=== PATIENT | female | born 1980 ===

== ENCOUNTER 2017-08-26 02:53 | Inpatient (IN) | payer OTHER ==
[2017-08-26] MEDS ORDERED: Lactated Ringer's 1,000 ML in Lactated Ringer's 1,000 ML IV STA (03:26)
--- NOTE | 2017-08-26 03:32 | ED PDOC ---
Arrival/HPI - General Chief Complaint: Abdominal Pain Time Seen by Provider: 08/26/17 03:25 Historian: Patient, Spouse - History of Present Illness Narrative History of Present Illness (Text): you were treated in the ED today for having epigastric discomfort going to the back with nausea/vomiting without bile/blood after a heavy meal per you and your which has been recurrent the past few months otherwise without any headache/dizziness/difficulty breathing/chest pain/numbness/tingling/loss of limb function/pain with urination. 08/26/17 03:30 Time/Duration: 1-3 hours Symptom Onset: Gradual Symptom Course: Unchanged Severity Level: 4 Past Medical History - Provider Review Nursing Documentation Reviewed: Yes - Travel History Have you recently traveled outside [place] w/in the past 3 mons?: No - Psychiatric Hx Substance Use: No Family/Social History - Physician Review Nursing Documentation Reviewed: Yes Family/Social History: No Known Family HX Smoking Status: n Hx Alcohol Use: No Hx Substance Use: No Allergies/Home Meds Allergies/Adverse Reactions: Allergies No Known Allergies Allergy (Verified 08/26/17 03:07) Home Medications: Home Meds Medication Instructions Recorded Confirmed No Known Home Med 08/26/17 08/26/17 Review of Systems - Review of Systems Constitutional: Normal Eyes: Normal ENT: Normal Respiratory: Normal Cardiovascular: Normal Gastrointestinal: Abdominal Pain, Nausea, Vomiting Genitourinary Female: Normal Musculoskeletal: Normal Skin: Normal Neurological: Normal Endocrine: Normal Hemo/Lymphatic: Normal Psychiatric: Normal Physical Exam Vital Signs Reviewed: Yes Vital Signs Temp Pulse Resp BP Pulse Ox 08/26/17 05:58 69 20 123/71 97 08/26/17 04:50 71 20 142/81 100 08/26/17 03:04 98.4 F 85 18 135/84 99 Temperature: Afebrile Blood Pressure: Hypertensive Pulse: Regular Respiratory Rate: Normal Appearance: Positive for: Well-Appearing, Non-Toxic, Uncomfortable Mental Status: Positive for: Alert and Oriented X 3 - Systems Exam Head: Present: Atraumatic, Normocephalic Pupils: Present: PERRL Extroacular Muscles: Present: EOMI Conjunctiva: Present: Normal Ears: Present: Normal Mouth: Present: Moist Mucous Membranes Pharnyx: Present: Normal Nose (Internal): Present: Normal Inspection Neck: Present: Normal Range of Motion Respiratory/Chest: Present: Clear to Auscultation, Good Air Exchange Cardiovascular: Present: Regular Rate and Rhythm Abdomen: Present: Tenderness, Other (epigastric) Back: Present: Normal Inspection Upper Extremity: Present: Normal Inspection Lower Extremity: Present: Normal Inspection Neurological: Present: GCS=15, CN II-XII Intact, Speech Normal, Motor Func Grossly Intact Skin: Present: Warm, Normal Color Psychiatric: Present: Alert, Oriented x 3, Normal Insight, Normal Concentration Medical Decision Making ED Course and Treatment: 08/26/17 03:32 you were treated in the ED today for having epigastric discomfort going to the back with nausea/vomiting without bile/blood after a heavy meal per you and your which has been recurrent the past few months otherwise without any headache/dizziness/difficulty breathing/chest pain/numbness/tingling/loss of limb function/pain with urination. You were otherwise breathing easily, good strength/sensation, walking easily, clear lungs, mild epigastric abdomen tenderness, no fever temp 98.4, stable heart rate 85, stable breathing rate 18, excellent oxygen level 99% room air, elevated blood pressure 135/84 which we recommend repeat in 2-3 days primary care office to determine further treatment , you have blood tests no infection count 10.2, low blood mildly level hemoglobin 11.1/platelets 372, stable chemistry sodium 140, potassium 3.6, bicarbonate 27, chloride 103, bun 18, creatinine 0.9, glucose 112, mildly elevated liver AST/ALT 49/74, Liver Alkaline Phosphatase 70, Liver bilirubin 0.4 , heart blood test 0.21, urine test negative, urine test negative, ECG NSR, intravenous fluids/zofran/protonix done in the ED without improvement , counselled to eat low fat diet. 08/26/17 04:40 trop 0.206 with ECG NSR wo román elevation. pt had been given toradol earlier but will give asprin additionally 324mg w morphine. 08/26/17 04:52 EC: no change from prior. 08/26/17 06:35 repeat trop pending. 08/26/17 07:01 CTA CAP. No PE, dissection, aneurysm, stenosis. No ptx or consolidation, or effusion. multiple gallbladder stones with wall thickening. appendix is top normal thickness. b/l hilar LNs 08/26/17 07:44 repeat trop 0.01. no ECG signs of ischemia. d/w Dr. Adair and possible lab discrepency and will admit to tele for repeat trop/ecg to make final determination of trop status. npo, pending ultrasound gallbladder, consult surgery, and consult cardiology dr. weller. - Lab Interpretations Lab Results: 08/26/17 03:20 08/26/17 03:20 Lab Results 08/26/17 06:40: Troponin I < 0.01 D 08/26/17 03:53: Urine Color Yellow, Urine Appearance Clear, Urine pH 6.5, Ur Specific [place] 1.020, Urine Protein Negative, Urine Glucose (UA) Negative, Urine Ketones Negative, Urine Blood Negative, Urine Nitrate Negative, Urine Bilirubin Negative, Urine Urobilinogen 0.2, Ur Leukocyte Esterase Negative 08/26/17 03:20: Sodium 140, Potassium 3.6, Chloride 103, Carbon Dioxide 27, Anion Gap 14, BUN 18, Creatinine 0.9, Est GFR ( Amer) > 60, Est GFR (Non- Af Amer) > 60, Random Glucose 112 H, Calcium 8.7, Total Bilirubin 0.4, AST 49 H , ALT 74 H, Alkaline Phosphatase 70, Troponin I 0.21 H*, Total Protein 7.3, Albumin 3.9, Globulin 3.4, Albumin/Globulin Ratio 1.1, Lipase 132 08/26/17 03:20: PT 12.0, INR 1.10 H, APTT 30.3 08/26/17 03:20: WBC 10.2, RBC 3.67, Hgb 11.1 L, Hct 33.0 L, MCV 89.9, MCH 30.2, MCHC 33.6, RDW 12.8, Plt Count 372, MPV 9.9, Gran % 59.1, Lymph % (Auto) 29.6, [place] % (Auto) 8.2 H, Eos % (Auto) 2.5, Baso % (Auto) 0.6, Gran # 6.04, Lymph # 3.0, [place] # 0.8 H, Eos # 0.3, Baso # 0.06 I have reviewed the lab results: Yes - RAD Interpretation Radiology Orders: 08/26/17 04:50 ANGIOGRAPHY DISECTION PROTOCOL [CT] Stat 08/26/17 06:56 GALL BLADDER [US] Stat - EKG Interpretation Interpreted by ED Physician: Yes (NSR, flipped t waves, avr v1, flattened v2) Type: 12 lead EKG - Medication Orders Current Medication Orders: Discontinued Medications Aspirin (Aspirin Chewable) 324 mg PO STAT STA Stop: 08/26/17 04:42 Last Admin: 08/26/17 04:47 Dose: 324 mg Lactated Ringer's 1,000 ml/ (Lactated Ringer's) 2,000 mls @ 1,000 mls/hr IV BOLUS STA Stop: 08/26/17 04:55 Last Admin: 08/26/17 04:09 Dose: 1,000 mls/hr eMAR Start Stop Document 08/26/17 04:09 JOL (Rec: 08/26/17 04:09 JOL [id number]) Intravenous Solution Start Date 08/26/17 Start Time 03:30 End Date 08/26/17 End time 05:30 Total Infusion Time 120 Ketorolac Tromethamine (Toradol) 30 mg IVP STAT STA Stop: 08/26/17 04:23 Last Admin: 08/26/17 04:25 Dose: 30 mg MAR Pain Assessment Document 08/26/17 04:25 JOL (Rec: 08/26/17 04:47 JOL [id number]) Pain Reassessment Is this a pain reassessment? No Sleep Is patient sleeping during reassessment? No Presence of Pain Presence of Pain Yes Pain Scale Used Pain Scale Used Numeric Location Pain Location Body Site Abdomen IVP Administration Document 08/26/17 04:25 JOL (Rec: 08/26/17 04:47 JOL [id number]) Charges for Administration # of IVP Administrations 1 Morphine Sulfate (Morphine) 2 mg IVP STAT STA Stop: 08/26/17 04:42 Last Admin: 08/26/17 04:48 Dose: 2 mg MAR Pain Assessment Document 08/26/17 04:48 JOL (Rec: 08/26/17 04:48 JOL [id number]) Pain Reassessment Is this a pain reassessment? No Sleep Is patient sleeping during reassessment? No Presence of Pain Presence of Pain Yes Pain Scale Used Pain Scale Used Numeric Location Pain Location Body Site Chest Abdomen Description Intensity of Pain at present 7 IVP Administration Document 08/26/17 04:48 JOL (Rec: 08/26/17 04:48 JOL [id number]) Charges for Administration # of IVP Administrations 1 Ondansetron HCl (Zofran Inj) 4 mg IVP STAT STA Stop: 08/26/17 03:27 Last Admin: 08/26/17 04:09 Dose: 4 mg IVP Administration Document 08/26/17 04:09 JOL (Rec: 08/26/17 04:09 JOL [id number]) Charges for Administration # of IVP Administrations 1 Pantoprazole Sodium (Protonix Inj) 40 mg IVP STAT STA Stop: 08/26/17 03:27 Last Admin: 08/26/17 04:09 Dose: 40 mg IVP Administration Document 08/26/17 04:09 JOL (Rec: 08/26/17 04:09 JOL [id number]) Charges for Administration # of IVP Administrations 1 Disposition/Present on Arrival - Present on Arrival Any Indicators Present on Arrival: No History of DVT/PE: No History of Uncontrolled Diabetes: No Urinary Catheter: No History of Decub. Ulcer: No History Surgical Site Infection Following: None - Disposition Have Diagnosis and Disposition been Completed?: Yes Diagnosis: Epigastric abdominal pain Disposition: HOSPITALIZED Disposition Time: 07:47 Patient Plan: Admission, Telemetry Patient Problems: Current Active Problems Problem Status Onset Epigastric abdominal pain Acute Condition: STABLE Forms: [employer] (Citizen Of [place])
[2017-08-26 03:52] LABS: BASO # 0.06 K/mm3 (0.0-2.0); BASO % 0.6 % (0.0-3.0); EOS # 0.3 (0.0-0.7); EOS % 2.5 % (1.5-5.0); GRAN # 6.04 (1.4-6.5); GRAN % 59.1 % (50.0-68.0); LYMPH % 29.6 % (22.0-35.0); MEAN CELL VOLUME 89.9 fl (80.0-105.0); MEAN CORPUSCULAR HEMOGLOBIN 30.2 pg (25.0-35.0); MEAN CORPUSCULAR HGB CONC 33.6 g/dl (31.0-37.0); MEAN PLATELET VOLUME 9.9 fl (7.0-11.0); MONO # 0.8 (0.1-0.6); MONO % 8.2 % (1.0-6.0); RED CELL DISTRIBUTION WIDTH 12.8 % (11.5-14.5); WHITE BLOOD COUNT 10.2 10^3/ul (4.5-11.0)
[2017-08-26 03:55] LABS: ALB/GLOB RATIO 1.1 (1.1-1.8); ALKALINE PHOSPHATASE 70 U/L (38-126); ALT/SGPT 74 U/L (7-56); AST/SGOT 49 U/L (14-36); BILIRUBIN,TOTAL 0.4 mg/dL (0.2-1.3); BLOOD UREA NITROGEN 18 mg/dL (7-21); CALCIUM 8.7 mg/dL (8.4-10.5); CARBON DIOXIDE 27 mmol/L (21-33); CHLORIDE 103 mmol/L (98-107); GFR AFRICAN-AMERICAN > 60; GLUCOSE,RANDOM 112 mg/dL (70-110); LIPASE 132 U/L (23-300); POTASSIUM 3.6 mmol/L (3.6-5.0); SODIUM 140 mmol/L (132-148); TOTAL PROTEIN 7.3 g/dL (5.8-8.3)
[2017-08-26 03:56] LABS: INR 1.1 (0.93-1.08); PARTIAL THROMBOPLASTIN TIME 30.3 Seconds (25.1-36.5)
[2017-08-26 04:30] LABS: TROPONIN I 0.21 ng/mL
[2017-08-26] MEDS ORDERED: Morphine 2 mg/ml ISec ONE (04:37)
[2017-08-26] MEDS ORDERED: Morphine 2 mg/ml ISec IVP STA (04:41)
[2017-08-26 04:51] LABS: PH,URINE 6.5 (4.7-8.0); URINE BILIRUBIN NEGATIVE (NEGATIVE); URINE BLOOD NEGATIVE (NEGATIVE); URINE GLUCOSE (UA) NEGATIVE (NEGATIVE); URINE KETONE NEGATIVE (NEGATIVE); URINE LEUKOCYTE ESTERASE NEGATIVE Leu/uL (NEGATIVE); URINE PROTEIN NEGATIVE mg/dL (<30 mg/dL); URINE UROBILINOGEN 0.2 E.U./dL (<1 E.U./dL)
[2017-08-26 04:59] LABS: URINE APPEARANCE CLEAR (CLEAR); URINE COLOR YELLOW (YELLOW)
--- NOTE | 2017-08-26 06:44 | CT ---
EXAM: CT Chest Without and With Intravenous Contrast CT Abdomen and Pelvis Without and With Intravenous Contrast CLINICAL HISTORY: 37 years old, female; Signs and symptoms; Other: 37yof, epig pain, elevated trop, eval pe/dissect TECHNIQUE: Axial computed tomography images of the chest, abdomen and pelvis without and with intravenous contrast during the arterial phase of enhancement. All CT scans at this facility use one or more dose reduction techniques, viz.: automated exposure control; ma/kV adjustment per patient size (including targeted exams where dose is matched to indication; i.e. head); or iterative reconstruction technique. electromyographic technician Derek re: pt Alejandro crawford. This is CT angiography of chest abdomen and pelvis. This was confirmed with the technologist. [id number] images are submitted. Coronal and sagittal reformatted images were created and reviewed. CONTRAST: 150 mL of omni 350 administered intravenously. COMPARISON: No relevant prior studies available. FINDINGS: VASCULATURE: Aorta: No acute findings. No aortic aneurysm. No dissection. Pulmonary arteries: No CT evidence for pulmonary embolus. Great vessels of aortic arch: No acute findings. No dissection. No arterial occlusion or significant stenosis. Celiac trunk and mesenteric arteries: No acute findings. No occlusion or significant stenosis. Renal arteries: No acute findings. No occlusion or significant stenosis. Iliac arteries: No acute findings. No occlusion or significant stenosis. CHEST: Lungs: Unremarkable. No mass. No consolidation. Pleural space: Unremarkable. No significant effusion. No pneumothorax. Heart: Unremarkable. No cardiomegaly. No significant pericardial effusion. ABDOMEN: Liver: Unremarkable. No mass. Gallbladder and bile ducts: Partially distended gallbladder with multiple gallstones and gallbladder wall thickening and a possible calcified gallstone in the gallbladder seen on image 49 series 2.If clinically warranted, a right upper quadrant ultrasound and correlation with LFTs may be helpful for further assessment. No ductal dilation. Pancreas: Unremarkable. No ductal dilation. No mass. Spleen: Unremarkable. No splenomegaly. Adrenals: Unremarkable. No mass. Kidneys and ureters: Unremarkable. No obstructing stones. No hydronephrosis. No solid mass. Stomach and bowel: Moderate amount of stool in the colon. No obstruction. Nonspecific small bowel wall thickening likely due to underdistention. The Appendix: Appendix is seen and is top normal in thickness measuring 6 to 7 mm with no periappendiceal stranding. PELVIS: Bladder: Partially distended bladder. No stones. Reproductive: There is heterogeneous prominence of lower uterine segment with areas of calcification and then represent uterine fibroid. Unremarkable ovaries. CHEST, ABDOMEN and PELVIS: Intraperitoneal space: Unremarkable. No significant fluid collection. No free air. Bones/joints: No acute fracture. No dislocation. Soft tissues: There is a fat-containing umbilical hernia. Nonspecific posterior back edema. Lymph nodes: Bilateral hilar lymph nodes. IMPRESSION: 1. Partially distended gallbladder with multiple gallstones and gallbladder wall thickening and a possible calcified gallstone in the gallbladder seen on image 49 series 2.If clinically warranted, a right upper quadrant ultrasound and correlation with LFTs may be helpful for further assessment. 2. No acute vascular abnormalities identified.
--- NOTE | 2017-08-26 08:35 | CP.PCM.CON ---
History of Present Illness - History of Present Illness History of Present Illness: General Surgery Consult Note for Dr. Bray (covering for Dr. Buenrostro) Reason for consult: Epigastric pain and cholelithiasis 37 F with PMH of cholelithiasis presents to [facility] for complaint of epigastric pain. Patient states that pain began around 10 pm last night. About one hour prior, patient ate a meal and then chocolate. Patient reports sudden onset but states it progressively had gotten worse. She states she has had this pain in the past but not this severe. During previous episode, the pain subsided after some time. She attempted to do the same last night but subsequently develop one episode of non-bloody, non-bilious nausea/vomiting, which was brown in color. Patient rates pain as severe. She describes pain as constant, sharp and burning located in epigastric region with radiation to her right scapula. She had received morphine in the ED that has decreased the intensity of the pain to mild. Eating/drinking exacerbates her symptoms. Patient denies fever/chills, SOB , chest pain, palpitations, diarrhea, constipation, incontinence, urinary symptoms. PMD: Dr. Adair PMH: Cholelithiasis Meds: As per EMR Allergy: NKDA PSH: Denies Hosp: Denies FH: Ovarian CA, DM, HTN Social: denies tobacco/EtOH/illicit drug use Review of Systems - Review of Systems All systems: reviewed and no additional remarkable complaints except (as per HPI ) Past Patient History - Past Social History Smoking Status: n - PSYCHIATRIC Hx Substance Use: No Meds Allergies/Adverse Reactions: Allergies Allergy/AdvReac Type Severity Reaction Status Date / Time No Known Allergies Allergy Verified 08/26/17 03:07 Physical Exam - Constitutional Appears: No Acute Distress, Younger Than Stated Age - Head Exam Head Exam: ATRAUMATIC, NORMOCEPHALIC - Eye Exam Eye Exam: EOMI, Normal appearance. absent: Scleral icterus Pupil Exam: PERRL - ENT Exam ENT Exam: Mucous Membranes Moist - Neck Exam Neck exam: Positive for: Full Rom - Respiratory Exam Respiratory Exam: NORMAL BREATHING PATTERN - Cardiovascular Exam Cardiovascular Exam: REGULAR RHYTHM - GI/Abdominal Exam GI & Abdominal Exam: Normal Bowel Sounds, Soft, Tenderness (mild epigastric). absent: Distended, Firm, Guarding, Hernia, Rebound, Rigid Additional comments: (-) Gibbs's sign - Extremities Exam Extremities exam: Positive for: normal capillary refill, pedal pulses present. Negative for: calf tenderness, pedal edema - Back Exam Back exam: absent: CVA tenderness (L), CVA tenderness (R) - Neurological Exam Neurological exam: Alert, CN II-XII Intact, Normal Gait, Oriented x3 - Psychiatric Exam Psychiatric exam: Normal Affect, Normal Mood - Skin Skin Exam: Dry, Intact, Normal Color, Warm Results - Vital Signs Recent Vital Signs: Last Vital Signs Temp 98.4 F 08/26/17 03:04 Pulse 77 08/26/17 08:34 Resp 18 08/26/17 08:34 BP 114/63 08/26/17 08:34 Pulse Ox 100 08/26/17 08:34 - Labs Result Diagrams: 08/26/17 03:20 08/26/17 03:20 Assessment & Plan - Assessment and Plan (Free Text) Plan: 37 F with PMH of cholelithiasis who presents for epigastric pain -NPO -f/u HIDA -IV fluids -IV antibiotics -Analgesics/Anti-emetics PRN -f/u Cardio for elevated troponin -GI/DVT ppx -Management as per primary -Will Discuss with Dr. Bray (covering for Dr. Buenrostro) Fred Horton PGY1
--- NOTE | 2017-08-26 09:49 | CARD ---
APPROVED REPORT EKG Measurement Heart [id number] <Conclusion> Normal sinus rhythm Normal ECG No change
--- NOTE | 2017-08-26 09:49 | CARD ---
APPROVED REPORT EKG Measurement Heart [id number] <Conclusion> Normal sinus rhythm Normal ECG
[2017-08-26] MEDS ORDERED: HYDROmorphone 0.5 mg/0.5 ml ISec IVP PRN (10:06)
[2017-08-26] MEDS ORDERED: Sodium Chloride 0.9% 1,000 ML IV SCH (10:15)
[2017-08-26] MEDS ORDERED: cefTRIAXone 1,000 MG in Sodium Chloride 0.9% 50 ML IVPB SCH (10:15)
--- NOTE | 2017-08-26 10:20 | US ---
HISTORY: 37yoF, with epigastric tenderness. COMPARISON: None. TECHNIQUE: Sonographic evaluation of the right upper quadrant of the abdomen. FINDINGS: LIVER: Measures 13.5 cm in length. Patent portal vein. Portal venous flow: Hepatopetal. Unremarkeable echogenicity of the liver parenchyma. No mass. No intrahepatic bile duct dilatation. GALLBLADDER: Cholelithiasis. Negative study for gallbladder wall thickening, pericholecystic fluid, sonographic Gibbs's sign. COMMON BILE DUCT: Measures 4.1 mm. No stones. No dilatation. PANCREAS: Unremarkable as visualized. No mass. No ductal dilatation. RIGHT KIDNEY: Measures 4.6 x 9.4 cm in length. Normal echogenicity. No calculus, mass, or hydronephrosis. AORTA: No aneurysmal dilatation. IVC: Unremarkable. OTHER FINDINGS: None . IMPRESSION: Cholelithiasis. No sonographic evidence of acute cholecystitis.
[2017-08-26] MEDS: metroNIDAZOLE IV 500 mg/100 ml 500 MG/100 ML BAG IVPB SCH ×2 (13:46→21:43)
[2017-08-26 15:34] VITALS: BMI 30.9
[2017-08-26] MEDS ORDERED: Influenza Vaccine 60 mcg/0.5 mL SYR (4YR UP) IM ONE (15:34)
[2017-08-26] MEDS ORDERED: Pneumococcal 23-Valent Vaccine IM ONE (15:34)
[2017-08-26] MEDS: Sodium Chloride 0.9% 1,000 ML IV SCH (15:50)
[2017-08-27 00:57] VITALS: O2SAT 97
--- NOTE | 2017-08-27 02:36 | HP ---
HISTORY OF PRESENT ILLNESS: The patient is a 37-year-old who came to emergency room because of epigastric pain. No history of dizziness. No palpitations. PAST MEDICAL HISTORY: Not significant except for gastroesophageal reflux disease. Denies any hemoptysis. No hematemesis. ALLERGIES: SHE IS NOT ALLERGIC TO ANY MEDICATION. MEDICATIONS AT HOME: She is on not on any medicine at home. SOCIAL HISTORY: She is , lives with her . No children. PHYSICAL EXAMINATION: GENERAL: She is awake, alert, oriented, communicative. VITAL SIGNS: She is afebrile, pulse 69, respirations 18, blood pressure 127/80. LUNGS: Bilateral good airflow. No rhonchi or crackles. HEART: S1, S2 audible. ABDOMEN: Soft, slight palpable epigastric discomfort, but no rebound or guarding. NEUROLOGICAL: She is awake, alert, oriented, communicative. LABORATORY EXAM: WBC is 10.2, hemoglobin 11, hematocrit 33, platelet 372. PT 12.0, INR 1.10. Chemistry: Sodium 140, potassium 3.6, chloride 103, CO2 of 27, BUN 18, creatinine 0.9, blood sugar of 112. AST 49, ALT 74. First troponin 0.02 and second one is 0.01. Urinalysis is unremarkable. She had CT scan of the abdomen and pelvis done. She had CT angio done that showed partially distended gallbladder with multiple gallstones with thickening and possible calcification and she had abdominal sonogram done that shows cholelithiasis, no evidence of acute cholecystitis. ASSESSMENT/PLAN: 1. Epigastric pain, probably cholelithiasis versus gastritis. 2. Abnormal LFTs. PLAN: We will continue the patient on current pain medication. She is on metronidazole. She is on IV fluids. She is on Protonix and Rocephin. The patient was seen by Dr. Anton Bray. If the patient gets stabilized by tomorrow morning, we might discharge her and she can have elective cholecystectomy done later on. HIDA scan has been ordered. We will follow that up. Lesly Adair MD
[2017-08-27] MEDS: Sodium Chloride 0.9% 1,000 ML IV SCH ×3 (03:31→15:45)
[2017-08-27] MEDS: metroNIDAZOLE IV 500 mg/100 ml 500 MG/100 ML BAG IVPB SCH ×2 (05:06→14:38)
--- NOTE | 2017-08-27 08:13 | NM ---
PROCEDURE: Nuclear Medicine Hepatobiliary Scan HISTORY: cholelithiasis COMPARISON: August 26, 2017. TECHNIQUE: 6.7 mCi of technetium 99m Mebrofenin was administered intravenously. Planar images of the abdomen were obtained at 5 min intervals to 60 mins. Delayed images were also obtained. FINDINGS: LIVER: Timely and homogenous uptake. COMMON BILE DUCT: 5 minutes GALLBLADDER: Not identified at 3 hours mins. SMALL BOWEL: Identified at 15 mins. IMPRESSION: Abnormal Hepatobiliary Scan. The cystic duct is occluded consistent with acute cholecystitis.
[2017-08-27 09:13] LABS: HEMATOCRIT 33.7 % (36.0-48.0); MEAN CELL VOLUME 90.6 fl (80.0-105.0); MEAN CORPUSCULAR HEMOGLOBIN 30.4 pg (25.0-35.0); MEAN CORPUSCULAR HGB CONC 33.5 g/dl (31.0-37.0); MEAN PLATELET VOLUME 9.6 fl (7.0-11.0); RED CELL DISTRIBUTION WIDTH 12.8 % (11.5-14.5); WHITE BLOOD COUNT 7.8 10^3/ul (4.5-11.0)
[2017-08-27 09:22] VITALS: RESP 18
[2017-08-27 09:25] LABS: ALB/GLOB RATIO 1.1 (1.1-1.8); ALKALINE PHOSPHATASE 65 U/L (38-126); ALT/SGPT 58 U/L (7-56); AST/SGOT 38 U/L (14-36); BILIRUBIN,TOTAL 0.5 mg/dL (0.2-1.3); BLOOD UREA NITROGEN 9 mg/dL (7-21); CALCIUM 8.4 mg/dL (8.4-10.5); CARBON DIOXIDE 22 mmol/L (21-33); CHLORIDE 107 mmol/L (98-107); GFR AFRICAN-AMERICAN > 60; GLUCOSE,RANDOM 131 mg/dL (70-110); POTASSIUM 3.4 mmol/L (3.6-5.0); SODIUM 138 mmol/L (132-148); TOTAL PROTEIN 6.4 g/dL (5.8-8.3)
--- NOTE | 2017-08-27 10:19 | CARD ---
APPROVED REPORT EKG Measurement Heart [id number] [place] [id number] <Conclusion> Normal sinus rhythm Normal ECG No change
--- NOTE | 2017-08-27 10:36 | CP.PCM.PN ---
Subjective - Date & Time of Evaluation Date of Evaluation: 08/27/17 Time of Evaluation: 07:10 - Subjective Subjective: General Surgery Note for Dr. Bray Patient seen and examined at bedside. No acute event overnight. Patient is lying in bed comfortably. She states her pain has resolved. Patient is tolerating liquid diet. She wishes to wait to have surgery after the holiday. Patient has no complaints at this time. Objective - Vital Signs/Intake and Output Vital Signs (last 24 hours): Temp Pulse Resp BP Pulse Ox 98 F 81 18 118/76 97 08/27/17 05:25 08/27/17 10:00 08/27/17 09:10 08/27/17 09:10 08/27/17 09:10 Intake and Output: 08/27/17 08/27/17 06:59 18:59 Intake Total 360 Output Total 1 Balance 359 - Medications Medications: Current Medications Hydromorphone HCl (Dilaudid) 0.5 mg IVP Q4H PRN PRN Reason: Pain, severe (8-10) Metronidazole (Flagyl) 500 mg in 100 mls @ 100 mls/hr IVPB Q8 TONA PRN Reason: Protocol Last Admin: 08/27/17 05:06 Dose: 100 mls/hr Ceftriaxone Sodium 1 gm/ (Sodium Chloride) 100 mls @ 100 mls/hr IVPB DAILY TONA PRN Reason: Protocol Last Admin: 08/27/17 09:13 Dose: 100 mls/hr Sodium Chloride (Sodium Chloride 0.9%) 1,000 mls @ 120 mls/hr IV .Q8H20M [facility] Last Admin: 08/27/17 07:37 Dose: Not Given Ondansetron HCl (Zofran Inj) 4 mg IVP Q4H PRN PRN Reason: Nausea/Vomiting Pantoprazole Sodium (Protonix Inj) 40 mg IVP DAILY [facility] Last Admin: 08/27/17 09:13 Dose: 40 mg - Labs Labs: 08/27/17 09:00 08/27/17 09:00 PT 12.0 SECONDS (9.4-12.5) 08/26/17 03:20 INR 1.10 (0.93-1.08) H 08/26/17 03:20 APTT 30.3 Seconds (25.1-36.5) 08/26/17 03:20 - Constitutional Appears: No Acute Distress - Head Exam Head Exam: ATRAUMATIC, NORMOCEPHALIC - Eye Exam Eye Exam: Normal appearance - ENT Exam ENT Exam: Mucous Membranes Moist - Respiratory Exam Respiratory Exam: NORMAL BREATHING PATTERN - Cardiovascular Exam Cardiovascular Exam: REGULAR RHYTHM - GI/Abdominal Exam GI & Abdominal Exam: Soft, Normal Bowel Sounds. absent: Distended, Firm, Guarding, Tenderness, Hernia, Mass, Rebound - Extremities Exam Extremities Exam: Normal Capillary Refill - Neurological Exam Neurological Exam: Alert, Awake, CN II-XII Intact, Oriented x3 - Psychiatric Exam Psychiatric exam: Normal Affect, Normal Mood - Skin Skin Exam: Dry, Intact, Normal Color, Warm Assessment and Plan - Assessment and Plan (Free Text) Plan: 37 F with PMH of cholelithiasis who presents for epigastric pain -CLD, ADAT -IV fluids -IV antibiotics -Analgesics/Anti-emetics PRN -GI/DVT ppx -Management as per primary -Patient wishes to have procedure electively after the holiday -Will Discuss with Dr. Bray (covering for Dr. Buenrostro) Fred Horton PGY1
--- NOTE | 2017-08-27 12:01 | PN ---
DATE: SUBJECTIVE: The patient denies any chest pain or abdominal pain. PHYSICAL EXAMINATION: VITAL SIGNS: Blood pressure 118/76, heart rate 85, temperature 98, and respirations 20. HEENT: Normocephalic. CHEST: Clear. HEART: S1 and S2. Regular. ABDOMEN: Soft. EXTREMITIES: No edema. LABORATORY DATA: Today's SMA-7 is within normal limits except for glucose of 131 and potassium of 3.4. Repeat 12-lead EKG revealed normal sinus rhythm. Hepatobiliary scan revealed cystic duct occluded consistent with acute cholecystitis. ASSESSMENT: 1. Acute cholecystitis. 2. Borderline troponin elevation on presentation, very unlikely represents myocardial injury. RECOMMENDATIONS: I discussed the case with the surgeon Dr. Bray and after optimizing electrolytes abnormality. The patient can undergo cholecystectomy from the cardiac point of view, however, the patient declined to go for surgery until after the holiday and specifically in September. Karsten Berrios MD MTDD
[2017-08-27 17:47] VITALS: BP 128/76; TEMP 98
[2017-08-27 18:34] VITALS: PULSE 98
--- NOTE | 2017-08-28 07:23 | DS ---
HOSPITAL COURSE: The patient is a 37-year-old, seen and examined, lying in bed, seems to be comfortable. No nausea or vomiting. Slight epigastric discomfort. Tolerated liquid diet, did not throw up. PHYSICAL EXAMINATION: VITAL SIGNS: She is afebrile, pulse 73, respirations 18, and blood pressure 115/74. LUNGS: Bilateral fair airflow. No rhonchi or crackle. HEART: S1, S2 audible. ABDOMEN: Soft, slight epigastric discomfort. No rebound and no guarding. NEUROLOGIC: She is awake, alert, oriented, and communicative. LABORATORY EXAM: WBC 7.8, hemoglobin 11.3, hematocrit 33.7, and platelets 337. Chemistry: Sodium 138, potassium 3.4, chloride 107, CO2 of 22, BUN 9, creatinine 0.7, blood sugar of 131, AST 38, and ALT 58. Urinalysis is unremarkable. HIDA is not visualized. ASSESSMENT AND PLAN: Epigastric pain, gastritis versus acute cholecystitis. The patient wants to go home because of the [place]. She is high risk to get cholangitis and get GI evaluation by Dr. Logan if she needs endoscopic retrograde cholangio-pancreatography, but for now we will discharge her home and she will follow up with me and Dr. Logan as an outpatient. Lesly Adair MD cc:
--- NOTE | 2017-08-29 09:07 | CON ---
CARDIOLOGY CONSULTATION DATE: 08/26/2017 REASON FOR CONSULTATION: Epigastric discomfort. HISTORY OF PRESENT ILLNESS: The patient is 37-year-old female, who has a history of cholelithiasis, she presented because of epigastric pain radiating to the back. She nausea and vomiting. The patient is unaware of any prior cardiac history. At this time, the patient is comfortable with subsidence of epigastric pain and denies any retrosternal chest pain. The patient denies any associated diaphoresis. The patient had her last menses 3 days ago. SOCIAL HISTORY: The patient is nonsmoker and nondrinker. MEDICATIONS: Rocephin 1 g intravenously q. 12 hours, Dilaudid 0.5 mg intravenously q. 4 hours p.r.n., Flagyl 500 mg intravenously q. 8 hours, Protonix 40 mg intravenously once a day, normal saline 150 mL an hour and Zofran 4 mg intravenously q. 4 hours. REVIEW OF SYSTEMS: No reported fever. The patient did report chills. PHYSICAL EXAMINATION GENERAL: The patient is a young middle-aged female, who does not appear to be in acute distress. VITAL SIGNS: Blood pressure 114/63, heart rate 77, temperature 98.4, and respirations 18. HEENT: Normocephalic. NECK: No JVD. CHEST: Clear. HEART: S1 and S2 regular. ABDOMEN: Soft. EXTREMITIES: No edema. LABORATORY DATA: Hemoglobin and hematocrit 11.1 and 33.0, white count and platelet count are within normal limit. SMA-7 is within normal limit except for glucose 112. Troponin is 0.21 and less than 0.01 in the sequence. INR is 1.1 and PTT 30.3. EKG reveals sinus rhythm at a rate of 69 and a rate of 72. No ischemia was reported. Gall bladder ultrasound, cholelithiasis. No sonographic evidence of cholecystitis. CT angio with dissection protocol reveal partially distended gall bladder with multiple gall stones and gallbladder wall thickening and possible calcified gall stones in the gall bladder. No acute vascular abnormality identified. ASSESSMENT: 1. Cholelithiasis with possible cholecystitis. 2. Borderline troponin elevation, unlikely represent acute myocardial injury. RECOMMENDATION: Continue current IV Rocephin and IV Flagyl. Continue normal saline at 150 mL an hour. Obtain an echocardiogram and consider HIDA scan. Karsten Berrios MD [facility] # [id number]
--- NOTE | 2017-08-29 09:12 | CON ---
DATE: 08/27/2017 REASON FOR CONSULTATION: Abdominal pain, gallstones. HISTORY OF PRESENT ILLNESS: This 37-year-old patient with known history of gallstones, admitted last night with acute onset of abdominal pain started around 10 p.m. The patient presented to the Emergency Room at 2 a.m. The patient had several episodes of similar discomfort in the past, but she said is lesser degree. No fever. Feels now completely normal, no pain now. The patient did have an ultrasound scan of the abdomen done which showed gallstones, common bile duct measured only 4.1 mm. No wall thickening or pericholecystic fluid. The patient had a CT angio done because of severe pain to rule out any PE, it showed distended gallbladder with multiple gallstones. No pericholecystic inflammatory changes. The patient subsequently had HIDA scan, which showed non-visualized gallbladder after 3 hours. The patient is now tolerating the diet. The patient was seen by surgical team. The patient wants to go home for [place] and the patient was cleared by surgical perspective to have surgery done as an outpatient. PAST MEDICAL HISTORY: Other past medical history significant for gastroesophageal reflux disease. ALLERGIES: NO KNOWN DRUG ALLERGIES. SOCIAL HISTORY: Denies smoking. No alcohol. REVIEW OF SYSTEMS: Positive as above, all other systems reviewed negative. PHYSICAL EXAMINATION GENERAL: The patient is lying on the bed, not in acute distress. VITAL SIGNS: Temperature is 98, blood pressure 128/76, pulse 75, respirations 18. HEENT: Atraumatic, anicteric. NECK: Supple. HEART: S1 and S2 heard. LUNGS: Bilateral air entry present. ABDOMEN: Soft. There is no tenderness at this point. EXTREMITIES: No edema, no cyanosis. NEUROLOGIC: Alert, oriented. Moves all the extremities. LABORATORY DATA: Hemoglobin 11.3, hematocrit 33.7, WBC 7.8, platelets 337. Chemistry shows AST is 38, ALT is 58 IMPRESSION: This 37-year-old patient with known history of gallstones admitted with acute onset of abdominal pain. CT shows normal common bile duct, multiple stones, no pericholecystic fluid or thickening. However, HIDA scan shows non-visualized gallbladder. The patient wants to go home and seen by Surgery to be scheduled as an outpatient surgery. At this point, I had lengthy discussion with the patient. The patient was clearly told to come back to the ER if there is any worsening of the symptoms. The patient will be given a prescriptions for Levaquin and Flagyl by the surgical team and the patient is planning to follow up with Dr. Adair next week. We have requested; 1. Hepatitis profile. 2. Follow up of the LFTs as an outpatient. At this point, clinically it is not suggestive of any CBD stone; however, would recommend intraoperative cholangiogram if the laparoscopic cholecystectomy is scheduled. We would recommend follow up of the LFTs. Thank you very much for allowing us to participate in the care of the patient. Dylan Logan MD MTDD
== END 2017-08-27 18:38 | disposition home or self-care (01) | DRG 446 ==
LOC: ED 02:53 → ERH 07:47 → 2RSO 09:45
PROVIDERS: ADMIT Internal Medicine; ATTEND Internal Medicine
DX: K80.00 Calculus of gallbladder with acute cholecystitis without obstruction (principal); K21.9 Gastro-esophageal reflux disease without esophagitis; K29.70 Gastritis, unspecified, without bleeding; R94.5 Abnormal results of liver function studies; Z83.3 Family history of diabetes mellitus; Z82.49 Family history of ischemic heart disease and other diseases of the circulatory system; Z80.41 Family history of malignant neoplasm of ovary

== ENCOUNTER 2018-05-10 18:04 | Emergency (ER) | payer OTHER ==
[2018-05-10 18:40] VITALS: TEMP 98.2; BMI 33.7
--- NOTE | 2018-05-10 19:27 | ED PDOC ---
Arrival/HPI - General Chief Complaint: Abdominal Pain Time Seen by Provider: 05/10/18 18:49 Historian: Patient - History of Present Illness Narrative History of Present Illness (Text): 05/10/18 18:49 38 year old female, with no significant past medical history, presents to the Emergency Department complaining of suprapubic abdominal cramping associated with nausea since today. Patient states she took a home test few days ago to confirm her and did not received any care prior to US. Patient denies any associated urinary symptoms, vaginal bleeding, or fever. Patient denies any other complaints. Time/Duration: 4-6 hours Symptom Onset: Gradual Symptom Course: Unchanged Quality: Aching Activities at Onset: Light Context: Home Past Medical History - Provider Review Nursing Documentation Reviewed: Yes - Infectious Disease Hx of Infectious Diseases: None - Cardiac Hx Cardiac Disorders: No - Pulmonary Hx Respiratory Disorders: No - Neurological Hx Neurological Disorder: No - HEENT Hx HEENT Disorder: No - Renal Hx Renal Disorder: No - Endocrine/Metabolic Hx Endocrine Disorders: No - Hematological/Oncological Hx Blood Disorders: No - Integumentary Hx Dermatological Disorder: No - Musculoskeletal/Rheumatological Hx Musculoskeletal Disorders: No Hx Falls: No - Gastrointestinal Hx Gastrointestinal Disorders: Yes Hx Gall Bladder Disease: Yes (CHOLELITHIASIS 08-26-17) - Genitourinary/Gynecological Hx Genitourinary Disorders: No - Psychiatric Hx Psychophysiologic Disorder: No Hx Substance Use: No - Surgical History Hx Cholecystectomy: Yes (09/11/17) - Anesthesia Hx Anesthesia Reactions: No Hx Malignant Hyperthermia: No - Suicidal Assessment Feels Threatened In Home Enviroment: No Family/Social History - Physician Review Nursing Documentation Reviewed: Yes Family/Social History: No Known Family HX Smoking Status: Never Smoked Hx Alcohol Use: No Hx Substance Use: No Allergies/Home Meds Allergies/Adverse Reactions: Allergies No Known Allergies Allergy (Verified 05/10/18 18:40) Home Medications: Home Meds Medication Instructions Recorded Confirmed Docosahexanoic Acid [ Dha] 1 tab PO DAILY 05/10/18 05/10/18 Review of Systems - Physician Review All systems were reviewed & negative as marked: Yes - Review of Systems Constitutional: absent: Fevers Gastrointestinal: Abdominal Pain. absent: Nausea, Vomiting Genitourinary Female: absent: Dysuria, Urine Output Changes, Vaginal Bleeding Physical Exam Vital Signs Reviewed: Yes Vital Signs Temp Pulse Resp BP Pulse Ox 05/10/18 20:54 89 18 125/82 99 05/10/18 18:40 98.2 F 85 17 142/84 100 Temperature: Afebrile Blood Pressure: Normal Pulse: Regular Respiratory Rate: Normal Appearance: Positive for: Well-Appearing, Non-Toxic, Comfortable Pain Distress: None Mental Status: Positive for: Alert and Oriented X 3 - Systems Exam Head: Present: Atraumatic, Normocephalic Pupils: Present: PERRL Extroacular Muscles: Present: EOMI Conjunctiva: Present: Normal Mouth: Present: Moist Mucous Membranes Neck: Present: Normal Range of Motion Respiratory/Chest: Present: Clear to Auscultation, Good Air Exchange. No: Respiratory Distress, Accessory Muscle Use Cardiovascular: Present: Regular Rate and Rhythm, Normal S1, S2. No: Murmurs Abdomen: No: Tenderness, Distention, Peritoneal Signs Back: Present: Normal Inspection Upper Extremity: Present: Normal Inspection. No: Cyanosis, Edema Lower Extremity: Present: Normal Inspection. No: Edema Neurological: Present: GCS=15, CN II-XII Intact, Speech Normal Skin: Present: Warm, Dry, Normal Color. No: Rashes Psychiatric: Present: Alert, Oriented x 3, Normal Insight, Normal Concentration Medical Decision Making ED Course and Treatment: 05/10/18 18:49 Impression: 38 year old female presents to the Emergency Department complaining of suprapubic abdominal pain and nausea. Plan: -- Blood type and Screen -- Labs -- Urine Culture -- Urinalysis -- Transvaginal US -- Reassess and disposition Prior Visits: Notes and results from previous visits were reviewed. Progress Notes: Uhcg + UA +for UTI Beta quant 998 Patient medicated with macrobid po TV US : FINDINGS: Uterus: Uterus measures approximate 7.7 x 4.5 x 5.6 cm. Endometrium measures approximate 2.2 cm in width.There are nabothian cysts in the cervix. Largest measures approximately 1.4 x 1.3 x 1.5 cm. Ovaries: Left ovary measures approximately 3 by 2 x 2 0.6 cm. There are follicles in the left ovary. There is expected blood flow on Doppler imaging Right ovary measures approximately 3.7 x 1.9 x 3 cm.There is expected blood flow on Doppler imaging Free fluid: There is no free fluid. IMPRESSION: Thickened endometrium, no intrauterine or ectopic gestation identified Followup sonograms and serial beta-hCG levels suggesting to document development of a gestation Dictated and Authenticated by: Valeria Kerns MD 05/10/2018 8:18 PM Eastern Time ([place] & [place]) On reevaluation, patient reports no vaginal bleeding. On exam, patient remains awake alert and oriented 3 in no acute distress. Abdomen still soft and nontender. Advised to return to the ER after 2 days without fail for repeat beta quant. Advised to take medication as prescribed. Return to the emergency room at any time for any new or worsening symptoms. Patient states she fully agrees with and understands discharge instructions. States that she agrees with the plan and disposition. Verbalized and repeated discharge instructions and plan. I have given the patient opportunity to ask any additional questions. - Lab Interpretations Lab Results: 05/10/18 20:22 05/10/18 20:22 Lab Results 05/10/18 20:23: Urine Color Yellow, Urine Appearance Sl cloudy, Urine pH 6.0, Ur Specific [place] >= 1.030, Urine Protein Trace H, Urine Glucose (UA) Negative , Urine Ketones Trace H, Urine Blood Negative, Urine Nitrate Positive H, Urine Bilirubin Negative, Urine Urobilinogen 0.2, Ur Leukocyte Esterase Small H, Urine RBC 0 - 2, Urine WBC 10 - 15, Ur Epithelial Cells Many, Calcium Oxalate Crystal Occ, Urine Bacteria Many 05/10/18 20:22: Blood Type O POSITIVE, Antibody Screen Negative, BBK History Checked No verified bt 05/10/18 20:22: Beta HCG, Quant 998.60 H 05/10/18 20:22: Sodium 138, Potassium 3.9, Chloride 104, Carbon Dioxide 24, Anion Gap 13, BUN 8, Creatinine 0.6 L, Est GFR ( Amer) > 60, Est GFR (Non -Af Amer) > 60, Random Glucose 106, Calcium 9.0, Total Bilirubin 0.4, AST 22, ALT 26, Alkaline Phosphatase 75, Total Protein 7.1, Albumin 3.8, Globulin 3.3, Albumin/Globulin Ratio 1.1 05/10/18 20:22: WBC 9.8, RBC 4.01, Hgb 11.7 L, Hct 34.9 L, MCV 87.0, MCH 29.2, MCHC 33.5, RDW 13.1, Plt Count 349, MPV 10.0, Gran % 58.8, Lymph % (Auto) 29.7, [place] % (Auto) 8.2 H, Eos % (Auto) 3.0, Baso % (Auto) 0.3, Gran # 5.77, Lymph # ( Auto) 2.9, [place] # (Auto) 0.8 H, Eos # (Auto) 0.3, Baso # (Auto) 0.03 - RAD Interpretation Radiology Orders: 05/10/18 18:49 OB TRANSVAGINAL [US] Stat - Medication Orders Current Medication Orders: Discontinued Medications Nitrofurantoin Macrocrystals (Macrobid) 100 mg PO ONCE ONE PRN Reason: Protocol Stop: 05/10/18 20:30 Last Admin: 05/10/18 20:50 Dose: 100 mg - PA / EXHAUSTER / Resident Statement MD/DO has reviewed & agrees with the documentation as recorded. - Scribe Statement The provider has reviewed the documentation as recorded by the Scribe Nicky Aragon. All medical record entries made by the Scribe were at my direction and personally dictated by me. I have reviewed the chart and agree that the record accurately reflects my personal performance of the history, physical exam, medical decision making, and the department course for this patient. I have also personally directed, reviewed, and agree with the discharge instructions and disposition. Disposition/Present on Arrival - Present on Arrival Any Indicators Present on Arrival: No History of DVT/PE: No History of Uncontrolled Diabetes: No Urinary Catheter: No History of Decub. Ulcer: No History Surgical Site Infection Following: None - Disposition Have Diagnosis and Disposition been Completed?: Yes Diagnosis: UTI (urinary tract infection), Disposition: HOME/ ROUTINE Disposition Time: 21:00 Patient Plan: Discharge Condition: STABLE Discharge Instructions (ExitCare): Urinary Tract Infection, Adult (DC), - The First Month, - The Second Month Additional Instructions: Please return to the ER after 2 days for repeat beta quant. Thank you for letting us take care of you today. You were treated for UTI, . The emergency medical care you received today was directed at your acute symptoms. If you were prescribed any medication, please fill it and take as directed. It may take several days for your symptoms to resolve. Return to the Emergency Department if your symptoms worsen, do not improve, or if you have any other problems. Bring any paperwork you were given at discharge with you along with any medications you are taking to your follow up visit. Our treatment cannot replace ongoing medical care by a primary care provider (PCP) outside of the emergency department. Thank you for allowing the [facility] team to be part of your care today. If you had a urine culture: It will take several days for the results, if any change in treatment is needed we will contact you. Prescriptions: Nitrofurantoin Macrocrystals [Macrobid] 100 mg PO BID #20 cap Referrals: Venkata Meneses MD [Staff Provider] - [facility]Outside] - Follow up with primary Forms: [employer] (Sinhala), WORK NOTE
--- NOTE | 2018-05-10 20:18 | US ---
EXAM: US , Transvaginal EXAM DATE/TIME: 05/10/2018 6:49 PM CLINICAL HISTORY: 38 years old, female; Pain; complicated by abdominal or pelvic pain; Lower; First trimester; Gestational age or lmp: Lmp 04/06/18; ; Additional info: Abd pain, TECHNIQUE: Real-time transvaginal obstetrical ultrasound of the maternal pelvis and a first trimester with image documentation. Transvaginal imaging was used for better evaluation of the fetus and adnexa. COMPARISON: There are no prior studies for comparison. FINDINGS: Uterus: Uterus measures approximate 7.7 x 4.5 x 5.6 cm. Endometrium measures approximate 2.2 cm in width.There are nabothian cysts in the cervix. Largest measures approximately 1.4 x 1.3 x 1.5 cm. Ovaries: Left ovary measures approximately 3 by 2 x 2 0.6 cm. There are follicles in the left ovary. There is expected blood flow on Doppler imaging Right ovary measures approximately 3.7 x 1.9 x 3 cm.There is expected blood flow on Doppler imaging Free fluid: There is no free fluid. IMPRESSION: Thickened endometrium, no intrauterine or ectopic gestation identified Followup sonograms and serial beta-hCG levels suggesting to document development of a gestation
[2018-05-10 20:27] LABS: URINE APPEARANCE SL CLOUDY (CLEAR); URINE BILIRUBIN NEGATIVE (NEGATIVE); URINE BLOOD NEGATIVE (NEGATIVE); URINE COLOR YELLOW (YELLOW); URINE GLUCOSE (UA) NEGATIVE (NEGATIVE); URINE LEUKOCYTE ESTERASE SMALL Leu/uL (NEGATIVE); URINE PROTEIN TRACE mg/dL (<30 mg/dL); URINE UROBILINOGEN 0.2 E.U./dL (<1 E.U./dL)
[2018-05-10 20:27] LABS: BASO # 0.03 K/mm3 (0.0-2.0); BASO % 0.3 % (0.0-3.0); EOS # 0.3 (0.0-0.7); GRAN # 5.77 (1.4-6.5); GRAN % 58.8 % (50.0-68.0); HEMOGLOBIN 11.7 g/dL (12.0-16.0); LYMPH # 2.9 (1.2-3.4); LYMPH % 29.7 % (22.0-35.0); MEAN CORPUSCULAR HEMOGLOBIN 29.2 pg (25.0-35.0); MEAN CORPUSCULAR HGB CONC 33.5 g/dl (31.0-37.0); MONO # 0.8 (0.1-0.6); MONO % 8.2 % (1.0-6.0); RBC 4.01 10^6/uL (3.5-6.1); RED CELL DISTRIBUTION WIDTH 13.1 % (11.5-14.5); WHITE BLOOD COUNT 9.8 10^3/ul (4.5-11.0)
[2018-05-10 20:34] LABS: URINE BACTERIA MANY (NEG); URINE EPITHELIAL CELLS MANY /hpf (0-5); URINE RBC 0 - 2 /hpf (0-2)
[2018-05-10 20:36] LABS: URINE CALCIUM OXALATE CRYSTALS OCC /hpf
[2018-05-10 20:49] LABS: ALB/GLOB RATIO 1.1 (1.1-1.8); ALBUMIN 3.8 g/dL (3.0-4.8); ALT/SGPT 26 U/L (7-56); AST/SGOT 22 U/L (14-36); BLOOD UREA NITROGEN 8 mg/dL (7-21); GFR NON-AFRICAN AMERICAN > 60
[2018-05-10 20:55] VITALS: BP 125/82; PULSE 89; RESP 18; O2SAT 99
== END 2018-05-10 21:20 | disposition home or self-care (01) ==
LOC: ED 18:04
DX: O23.41 Unspecified infection of urinary tract in pregnancy, first trimester (principal); Z3A.00 Weeks of gestation of pregnancy not specified

== ENCOUNTER 2018-06-03 12:12 | Emergency (ER) | payer OTHER ==
[2018-06-03 12:12] VITALS: BMI 33.7
[2018-06-03 13:24] LABS: URINE BILIRUBIN NEGATIVE (NEGATIVE); URINE BLOOD LARGE (NEGATIVE); URINE GLUCOSE (UA) NEGATIVE (NEGATIVE); URINE LEUKOCYTE ESTERASE SMALL Leu/uL (NEGATIVE); URINE PROTEIN TRACE mg/dL (<30 mg/dL); URINE UROBILINOGEN 0.2 E.U./dL (<1 E.U./dL)
[2018-06-03 13:25] LABS: BASO # 0.02 K/mm3 (0.0-2.0); BASO % 0.2 % (0.0-3.0); EOS # 0.5 (0.0-0.7); EOS % 5.5 % (1.5-5.0); GRAN # 6.08 (1.4-6.5); GRAN % 66.5 % (50.0-68.0); HEMOGLOBIN 11.9 g/dL (12.0-16.0); LYMPH # 1.8 (1.2-3.4); LYMPH % 19.2 % (22.0-35.0); MEAN CELL VOLUME 88.8 fl (80.0-105.0); MEAN CORPUSCULAR HEMOGLOBIN 29.7 pg (25.0-35.0); MEAN CORPUSCULAR HGB CONC 33.4 g/dl (31.0-37.0); MEAN PLATELET VOLUME 9.7 fl (7.0-11.0); MONO # 0.8 (0.1-0.6); MONO % 8.6 % (1.0-6.0); RBC 4.01 10^6/uL (3.5-6.1); RED CELL DISTRIBUTION WIDTH 13.5 % (11.5-14.5); WHITE BLOOD COUNT 9.2 10^3/ul (4.5-11.0)
[2018-06-03 13:28] LABS: URINE APPEARANCE CLEAR (CLEAR); URINE COLOR YELLOW (YELLOW)
[2018-06-03 13:30] LABS: URINE BACTERIA MANY (NEG); URINE RBC 20 - 25 /hpf (0-2)
[2018-06-03 13:37] LABS: ALB/GLOB RATIO 1.2 (1.1-1.8); ALBUMIN 3.9 g/dL (3.0-4.8); ALT/SGPT 27 U/L (7-56); AST/SGOT 28 U/L (14-36); BLOOD UREA NITROGEN 11 mg/dL (7-21); GFR NON-AFRICAN AMERICAN > 60
--- NOTE | 2018-06-03 15:50 | ED PDOC ---
Arrival/HPI - General Chief Complaint: Female Genitourinary Time Seen by Provider: 06/03/18 12:26 Historian: Patient - History of Present Illness Narrative History of Present Illness (Text): 06/03/18 15:47 38 year old female, whose past medical history includes , who presents to the Emergency Department complaining of vaginal spotting sice this morning. Patient states her last LKMP was 0r7. Patient denies any fevers, chills, chest pain, shortness of breath, abdominal pain, dysuria, hematuria, nausea, vomiting, diarrhea, back pain, neck pain, urinary symptoms, headache, dizziness, or any other complaint. Time/Duration: Prior to Arrival Symptom Onset: Sudden Symptom Course: Unchanged Activities at Onset: Light Context: Home Past Medical History - Provider Review Nursing Documentation Reviewed: Yes - Infectious Disease Hx of Infectious Diseases: None - Cardiac Hx Cardiac Disorders: No - Pulmonary Hx Respiratory Disorders: No - Neurological Hx Neurological Disorder: No - HEENT Hx HEENT Disorder: No - Renal Hx Renal Disorder: No - Endocrine/Metabolic Hx Endocrine Disorders: No - Hematological/Oncological Hx Blood Disorders: No - Integumentary Hx Dermatological Disorder: No - Musculoskeletal/Rheumatological Hx Musculoskeletal Disorders: No - Gastrointestinal Hx Gastrointestinal Disorders: Yes Hx Gall Bladder Disease: Yes (CHOLELITHIASIS 08-26-17) - Genitourinary/Gynecological Hx Genitourinary Disorders: Yes Hx Urinary Tract Infection: Yes - Psychiatric Hx Psychophysiologic Disorder: No Hx Substance Use: No - Surgical History Hx Cholecystectomy: Yes - Anesthesia Hx Anesthesia Reactions: No Hx Malignant Hyperthermia: No - Suicidal Assessment Feels Threatened In Home Enviroment: No Family/Social History - Physician Review Nursing Documentation Reviewed: Yes Family/Social History: Unknown Family HX Smoking Status: Never Smoked Hx Alcohol Use: No Hx Substance Use: No Allergies/Home Meds Allergies/Adverse Reactions: Allergies No Known Allergies Allergy (Verified 06/03/18 12:24) Home Medications: Home Meds Medication Instructions Recorded Confirmed Docosahexanoic Acid [ Dha] 1 tab PO DAILY 05/10/18 06/03/18 Review of Systems - Physician Review All systems were reviewed & negative as marked: Yes - Review of Systems Constitutional: Normal Eyes: Normal ENT: Normal Respiratory: Normal. absent: SOB, Cough Cardiovascular: Normal. absent: Chest Pain Gastrointestinal: Normal. absent: Abdominal Pain Genitourinary Female: Vaginal Bleeding. absent: Dysuria, Frequency, Hematuria Musculoskeletal: Normal. absent: Back Pain, Neck Pain Skin: Normal. absent: Rash Neurological: Normal. absent: Headache Endocrine: Normal Hemo/Lymphatic: Normal Psychiatric: Normal Physical Exam Vital Signs Reviewed: Yes Vital Signs Temp Pulse Resp BP Pulse Ox 06/03/18 12:24 98.8 F 87 16 120/68 99 Temperature: Afebrile Blood Pressure: Normal Pulse: Regular Respiratory Rate: Normal Appearance: Positive for: Well-Appearing, Non-Toxic, Comfortable Pain Distress: None Mental Status: Positive for: Alert and Oriented X 3 - Systems Exam Head: Present: Atraumatic, Normocephalic Pupils: Present: PERRL Extroacular Muscles: Present: EOMI Conjunctiva: Present: Normal Mouth: Present: Moist Mucous Membranes Neck: Present: Normal Range of Motion Respiratory/Chest: Present: Clear to Auscultation, Good Air Exchange. No: Respiratory Distress, Accessory Muscle Use Cardiovascular: Present: Regular Rate and Rhythm, Normal S1, S2. No: Murmurs Abdomen: No: Tenderness, Distention, Peritoneal Signs Back: Present: Normal Inspection Upper Extremity: Present: Normal Inspection. No: Cyanosis, Edema Lower Extremity: Present: Normal Inspection. No: Edema Neurological: Present: GCS=15, CN II-XII Intact, Speech Normal Skin: Present: Warm, Dry, Normal Color. No: Rashes Psychiatric: Present: Alert, Oriented x 3, Normal Insight, Normal Concentration Medical Decision Making ED Course and Treatment: 06/03/18 15:50 Impression: 38 year old female presents to the Emergency department complaining of vaginal spotting since this morning. Plan: -- Urine Culture -- OB Transvaginal US -- Reassess and disposition Progress Notes: 06/03/18 16:44 IMPRESSION: Six weeks 5 days intrauterine gestation. Cardiac activity is not demonstrated at the present time. Well-formed gestational sac and yolk sac identified. - Lab Interpretations Lab Results: 06/03/18 13:18 06/03/18 13:18 Lab Results 06/03/18 13:18: Beta HCG, Quant 01813.00 H 06/03/18 13:18: Sodium 137, Potassium 3.7, Chloride 103, Carbon Dioxide 27, Anion Gap 11, BUN 11, Creatinine 0.6 L, Est GFR ( Amer) > 60, Est GFR (Non-Af Amer) > 60, Random Glucose 110, Calcium 9.0, Magnesium 1.8, Total Bilirubin 0.5, AST 28, ALT 27, Alkaline Phosphatase 66, Total Protein 7.3, Albumin 3.9, Globulin 3.4, Albumin/Globulin Ratio 1.2 06/03/18 13:18: Urine Color Yellow, Urine Appearance Clear, Urine pH 6.0, Ur Specific [place] 1.020, Urine Protein Trace H, Urine Glucose (UA) Negative, Urine Ketones Negative, Urine Blood Large H, Urine Nitrate Negative, Urine Bilirubin Negative, Urine Urobilinogen 0.2, Ur Leukocyte Esterase Small H, Urine RBC 20 - 25, Urine WBC 5 - 10, Ur Epithelial Cells 6 - 8, Urine Bacteria Many, Urine Other Uyeast 06/03/18 13:18: WBC 9.2, RBC 4.01, Hgb 11.9 L, Hct 35.6 L, MCV 88.8, MCH 29.7, MCHC 33.4, RDW 13.5, Plt Count 363, MPV 9.7, Gran % 66.5, Lymph % (Auto) 19.2 L, [place] % (Auto) 8.6 H, Eos % (Auto) 5.5 H, Baso % (Auto) 0.2, Gran # 6.08, Lymph # (Auto) 1.8, [place] # (Auto) 0.8 H, Eos # (Auto) 0.5, Baso # (Auto) 0.02 - RAD Interpretation Radiology Orders: 06/03/18 12:38 OB TRANSVAGINAL [US] Stat - Scribe Statement The provider has reviewed the documentation as recorded by the Scribe Carmen Ambriz All medical record entries made by the Scribe were at my direction and personally dictated by me. I have reviewed the chart and agree that the record accurately reflects my personal performance of the history, physical exam, medical decision making, and the department course for this patient. I have also personally directed, reviewed, and agree with the discharge instructions and disposition. Disposition/Present on Arrival - Present on Arrival Any Indicators Present on Arrival: No History of DVT/PE: No History of Uncontrolled Diabetes: No Urinary Catheter: No History of Decub. Ulcer: No History Surgical Site Infection Following: None - Disposition Have Diagnosis and Disposition been Completed?: Yes Diagnosis: Threatened Disposition: HOME/ ROUTINE Disposition Time: 15:00 Patient Problems: Current Active Problems Problem Status Onset Threatened Acute Condition: GOOD Discharge Instructions (ExitCare): Threatened Miscarriage (DC) Additional Instructions: BOGDAN NICOLE, thank you for letting us take care of you today. The emergency medical care you received today was directed at your acute symptoms. If you were prescribed any medication, please fill it and take as directed. It may take several days for your symptoms to resolve. Return to the Emergency Department if your symptoms worsen, do not improve, or if you have any other problems. Please contact your doctor or call one of the physicians/clinics you have been referred to that are listed on the Patient Visit Information form that is included in your discharge packet. Bring any paperwork you were given at discharge with you along with any medications you are taking to your follow up visit. Our treatment cannot replace ongoing medical care by a primary care provider outside of the emergency department. Thank you for allowing the [facility] team to be part of your care today. Your Beta hormone level is 17,500 Follow up with your [facility] doctor in 1-2 days for re-evaluation and further management. Referrals: Lesly Adair MD [Primary Care Provider] - Follow up with primary Forms: [employer] ([place])
[2018-06-03 15:52] VITALS: TEMP 98
--- NOTE | 2018-06-03 16:22 | US ---
Date of service: 06/03/2018 PROCEDURE: Pelvic ultrasound HISTORY: vaginal bleeding COMPARISON: 05/10/2018. TECHNIQUE: Standard protocol for this study/examination. FINDINGS: LMP: 04/06/2018 Prior examinations from the current : 05/10/2018 TECHNIQUE: Real-time 2D imaging, duplex and color Doppler. FINDINGS: pole identified without cardiac activity. Kinta-rump length 0.8 cm corresponds to gestational age of 6 weeks 5 days. Gestational age 6 weeks 5 days based on gestational sac measurement 2.06 cm Gestational age derived from LMP: 8 weeks 2 days KATHY based on LMP: 01/11/2019 KATHY based on biometry: 01/22/2019 Gestational concordance documented Yolk sac noted identified Cervix: No Cervical abnormalities: Negative examination for cervical dilatation or effacement. Closed cervix measuring 3.2 cm Subchorionic hemorrhage: None UTERUS: 4.9 x 5.2 x 8.6 cm. ADNEXA: Right: 2.2 x 3 x 3.3 cm. Normal Doppler arterial waveform documented. Left: 1.6 x 1.9 x 2.5 cm. Normal Doppler arterial waveform documented Fluid in the cul-de-sac: None IMPRESSION: Six weeks 5 days intrauterine gestation. Cardiac activity is not demonstrated at the present time. Well-formed gestational sac and yolk sac identified.
[2018-06-03 16:48] VITALS: BP 120/75; PULSE 79; RESP 18; O2SAT 100
== END 2018-06-03 16:48 | disposition home or self-care (01) ==
LOC: ED 12:12
DX: O20.0 Threatened abortion (principal); Z3A.01 Less than 8 weeks gestation of pregnancy